=== PATIENT | male | born 1995 | race Caucasian/White ===

== ENCOUNTER 2016-11-22 17:12 | Observation (INO) | payer BC ==
[~2016-11-22] VITALS: Ht 177.8 cm; Wt 81.8 kg
[~2016-11-22 17:12] MED LIST: IBUP-1050 PO
--- NOTE | 2016-11-22 18:14 | EMERGENCY ROOM VISIT NOTE ---
History Report prepared by Flako: Mitch Carias Under the Supervision of: Dr. Gil Balderas M.D. 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 The patient was seen in [place] at the time it happened. The patient says that he needs to be treated with factor 8. He had 3 rounds of factor 8 in [place], and says he needs more here. The patient's mother says that the patient is normally treated at home, but they are out of factor 8. The patient's arm has had worsening swelling and bruising in the past 24 hours. He denies any pain other than left arm pain. He sees and follows up with a pharmacist per diem in [place]. Source of History: patient, parent Onset: 5 days ago Position: elbow (left) Quality: other (dislocation - subsequent swelling/bruising) Timing: worsening Note: Associated symptoms: Left arm pain. Denies any other pain. Review of Systems See HPI for pertinent positives & negatives. A total of 10 systems reviewed and were otherwise negative. Past Medical & Surgical Medical Problems: (1) Ankle sprain (2) Ankle sprain (3) Ankle sprain (4) Ankle sprain (5) Ankle sprain (6) Ankle sprain (7) Arm pain, right (8) Arm pain, right (9) Arm pain, right (10) Arm pain, right (11) Arm pain, right (12) Arm pain, right (13) Bleeding (14) Bleeding (15) Bleeding (16) Bleeding (17) Bleeding (18) Bleeding (19) Bruising (20) Bruising (21) Bruising (22) Bruising (23) Bruising (24) Bruising (25) Hemophilia (26) Thigh contusion (27) Thigh contusion (28) Thigh contusion (29) Thigh contusion (30) Thigh contusion (31) Thigh contusion Family History Cancer Cancer Cancer Cancer Cancer Cancer Diabetes mellitus Diabetes mellitus Diabetes mellitus Diabetes mellitus Diabetes mellitus Diabetes mellitus Hypertension Hypertension Hypertension Hypertension Hypertension Hypertension Social History Smoking Status: Never Smoker Alcohol Use: none Drug Use: none Marital Status: single Housing Status: lives with family Occupation Status: student Current/Historical Medications Scheduled PRN Ibuprofen (Advil), 200-600 MG PO Q4H PRN for Pain or Fever [Factor VIII], 1 DOSE INJ UD PRN for Hemophilia Allergies Coded Allergies: Sulfa Drugs (Unverified Allergy, Mild, 04/12/16) Physical Exam Vital Signs Date Time Temp Pulse Resp B/P (MAP) Pulse Ox O2 Delivery O2 Flow Rate FiO2 11/22/16 19:49 57 11/22/16 17:28 36.8 62 18 126/94 100 Room Air Physical Exam GENERAL: Patient is a healthy-appearing well-nourished 21 year old male. HEAD: Normocephalic atraumatic EYES: Ocular movements intact pupils equal and react to light OROPHARYNX mucous membranes are moist no exudates present no erythema or edema present NECK: Supple no nuchal rigidity CHEST: Good equal expansion LUNGS: Clear and equal to auscultation CARDIAC: Normal S1 and S2 ABDOMEN: Soft nontender no guarding BACK: No CVA tenderness EXTREMITIES: Left arm grossly swollen. No evidence of compartment syndrome. Large bruising down left forearm, no evidence of cellulitis. NEURO: Patient is following commands and answering questions appropriately. Alert and oriented x3 Cranial Nerves 2-12 grossly intact Medical Decision & Procedures Laboratory Results 11/22/16 18:54 Red Blood Count 3.63, Mean Corpuscular Volume 87.1, Mean Corpuscular Hemoglobin 28.7, Mean Corpuscular Hemoglobin Concent 32.9, Mean Platelet Volume 9.5, Neutrophils (%) (Auto) 53.0, Lymphocytes (%) (Auto) 38.8, Monocytes (%) (Auto) 6.2, Eosinophils (%) (Auto) 1.6, Basophils (%) (Auto) 0.3, Neutrophils # (Auto) 4.18, Lymphocytes # (Auto) 3.06, Monocytes # (Auto) 0.49, Eosinophils # (Auto) 0.13, Basophils # (Auto) 0.02 11/22/16 18:54 Test 11/22/16 18:54 White Blood Count 7.89 K/uL (4.8-10.8) Red Blood Count 3.63 M/uL (4.7-6.1) Hemoglobin 10.4 g/dL (14.0-18.0) Hematocrit 31.6 % (42-52) Mean Corpuscular Volume 87.1 fL (80-100) Mean Corpuscular Hemoglobin 28.7 pg (25-34) Mean Corpuscular Hemoglobin Concent 32.9 g/dl (32-36) Platelet Count 256 K/uL (130-400) Mean Platelet Volume 9.5 fL (7.4-10.4) Neutrophils (%) (Auto) 53.0 % Lymphocytes (%) (Auto) 38.8 % Monocytes (%) (Auto) 6.2 % Eosinophils (%) (Auto) 1.6 % Basophils (%) (Auto) 0.3 % Neutrophils # (Auto) 4.18 K/uL (1.4-6.5) Lymphocytes # (Auto) 3.06 K/uL (1.2-3.4) Monocytes # (Auto) 0.49 K/uL (0.11-0.59) Eosinophils # (Auto) 0.13 K/uL (0-0.5) Basophils # (Auto) 0.02 K/uL (0-0.2) RDW Standard Deviation 42.3 fL (36.4-46.3) RDW Coefficient of Variation 13.2 % (11.5-14.5) Immature Granulocyte % (Auto) 0.1 % Immature Granulocyte # (Auto) 0.01 K/uL (0.00-0.02) Anion Gap 8.0 mmol/L (3-11) Est Creatinine Clear Calc Drug Dose 144.1 ml/min Estimated GFR () 144.8 Estimated GFR (Non- 124.9 BUN/Creatinine Ratio 17.2 (10-20) Calcium Level 8.6 mg/dl (8.5-10.1) Total Bilirubin 0.8 mg/dl (0.2-1) Direct Bilirubin 0.2 mg/dl (0-0.2) Aspartate Amino Transf (AST/SGOT) 19 U/L (15-37) Alanine Aminotransferase (ALT/SGPT) 30 U/L (12-78) Alkaline Phosphatase 61 U/L (45-117) Total Protein 6.7 gm/dl (6.4-8.2) Albumin 3.6 gm/dl (3.4-5.0) Lipase 291 U/L (73-393) Labs reviewed by ED physician. Medications Administered Medications (Trade) Dose Ordered Sig/Allie Route Start Time Stop Time Status Last Admin Dose Admin Antihemophilic Factor 3696 inter.unit/Syringe ml @ 5 mls/min NOW ONCE IV 11/22/16 18:45 11/22/16 18:46 DC 11/22/16 19:02 5 MLS/MIN Tramadol HCl (Ultram Tab) 50 mg NOW STAT PO 11/22/16 18:49 11/22/16 18:50 DC 11/22/16 19:02 50 MG ED Course 180: Past medical records reviewed. The patient was evaluated in room C4. A complete history and physical examination was performed. 1844: Ordered Factor 8/Humate-P/Recombinate 1 ea N/A. 1845: I reevaluated the patient and he is resting comfortably. The patient verbally expressed understanding and agreement of the treatment plan. The patient will be evaluated for further treatment. 1848: Ordered Ultram Tab 50 mg PO. 1850: I discussed the patient with Dr. Edda Aragon culinary manager - he will evaluate the patient for further treatment. Medical Decision Differential diagnosis: Etiologies such as cellulitis, abscess, MRSA infection, DVT, necrotizing fasciitis, dermatitis, drug eruption, as well as others were entertained.. Medication Reconciliation: I attest that I have personally reviewed the patient' s current medication list Blood Pressure Screening: Patient was found to have normal blood pressure on screening and does not require follow up. This is a 21-year-old male who presents emergency department complaining of severe swelling to the left arm and elbow. He made contact with this patient's pharmacist per diem at [place] who asked that the patient be admitted to the hospital due to the continued swelling that the patient's abdomen of the arm. They also asked that the patient's factor VIII be bumped up to 3696 units. I did discuss this with the family who agreed with plan. The patient was also discussed with the hospitalist. Consults Time Called: 1844 Consulting Physician: Dr. Edda Aragon culinary manager Returned Call: 1850 I discussed the patient with Dr. Edda Aragon culinary manager - he will evaluate the patient for further treatment. Impression Primary Impression: Hemophilia A Additional Impression: Contusion Scribe Attestation The scribe's documentation has been prepared under my direction and personally reviewed by me in its entirety. I confirm that the note above accurately reflects all work, treatment, procedures, and medical decision making performed by me. Departure Information Dispostion Being Evaluated By Hospitalist Jun Rader M.D. (PCP) Patient Instructions My [facility] Problem Qualifiers Additional Impression: Contusion Encounter type: initial encounter Contusion area: elbow Laterality: left Qualified Codes: S50.02XA - Contusion of left elbow, initial encounter
[2016-11-22] MEDS ORDERED: FACT1KIT IV (18:29)
[2016-11-22] MEDS ORDERED: FACTOR VIII INJ (18:35)
[2016-11-22] MEDS ORDERED: FACTOR 8/HUMATE-P/RECOMBINATE ONE ×2 (18:45→20:00)
[2016-11-22] MEDS ORDERED: RECOMBINATE INTER IV ONE (18:45)
[2016-11-22] MEDS ORDERED: TRAMADOL HCL 50 MG TAB PO STA (18:49)
[2016-11-22 19:04] LABS: BASO % 0.3 %; BASO ABS # 0.02 K/uL (0-0.2); COMPLETE YES; EOS % 1.6 %; HEMATOCRIT 31.6 % (42-52); IG% 0.1 %; LYMPH % 38.8 %; LYMPH ABS # 3.06 K/uL (1.2-3.4); MEAN CELL VOLUME 87.1 fL (80-100); MEAN CORPUSCULAR HEMOGLOBIN 28.7 pg (25-34); MEAN CORPUSCULAR HGB CONC 32.9 g/dl (32-36); MEAN PLATELET VOLUME 9.5 fL (7.4-10.4); MONO % 6.2 %; PLATELET COUNT 256 K/uL (130-400); RED BLOOD COUNT 3.63 M/uL (4.7-6.1); WHITE BLOOD COUNT 7.89 K/uL (4.8-10.8)
[2016-11-22 19:28] LABS: BUN/CREATININE RATIO 17.2 (10-20); CALCIUM 8.6 mg/dl (8.5-10.1); CREATININE 0.83 mg/dl (0.60-1.40); POTASSIUM 3.6 mmol/L (3.5-5.1)
[2016-11-22 21:00] VITALS: BP 135/89; PULSE 52; TEMP 36.8; O2SAT 97; Ht 177.8 cm; Wt 81.8 kg
[2016-11-22] MEDS ORDERED: IV FLUIDS COMPLETED PRN (21:00)
--- NOTE | 2016-11-22 21:08 | History and Physical ---
History & Physical Date & Time of Service: Nov 22, 2016 at 20:47 Chief Complaint: Swollen Left Arm Primary Care Physician: Jun Anderson M.D. 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 His elbow became swollen and bruised due to his hemophilia and he was seen in the hospital on November 18 - was given IV Factor VIII - was seen again the evening on November 18, and was given more Factor VIII and was discharged on November 19 - after his flight back to [place] he presented here; he is to take Factor VIII at home as needed for situations that arise like this, but ran out. Upon presentation to the ER, Hgb noted to be 10.4 (was 14.9 on November 18) - [facility] was called and they recommended Recombinate q12 for 2-3 days. Pain is controlled with medications; otherwise, no other symptoms. Past Medical/Surgical History Medical Problems: (1) Ankle sprain Status: Resolved (2) Ankle sprain Status: Resolved (3) Ankle sprain Status: Resolved (4) Ankle sprain Status: Resolved (5) Ankle sprain Status: Resolved (6) Ankle sprain Status: Resolved (7) Arm pain, right Status: Resolved (8) Arm pain, right Status: Resolved (9) Arm pain, right Status: Resolved (10) Arm pain, right Status: Resolved (11) Arm pain, right Status: Resolved (12) Arm pain, right Status: Resolved (13) Bleeding Status: Resolved (14) Bleeding Status: Resolved (15) Bleeding Status: Resolved (16) Bleeding Status: Resolved (17) Bleeding Status: Resolved (18) Bleeding Status: Resolved (19) Bruising Status: Resolved (20) Bruising Status: Resolved (21) Bruising Status: Resolved (22) Bruising Status: Resolved (23) Bruising Status: Resolved (24) Bruising Status: Resolved (25) Hemophilia Status: Chronic (26) Thigh contusion Status: Resolved (27) Thigh contusion Status: Resolved (28) Thigh contusion Status: Resolved (29) Thigh contusion Status: Resolved (30) Thigh contusion Status: Resolved (31) Thigh contusion Status: Resolved Family History Cancer Cancer Cancer Cancer Cancer Cancer Diabetes mellitus Diabetes mellitus Diabetes mellitus Diabetes mellitus Diabetes mellitus Diabetes mellitus Hypertension Hypertension Hypertension Hypertension Hypertension Hypertension Social History Smoking Status: Never Smoker Drug Use: none Marital Status: single Housing status: lives with family Occupational Status: student Multi-Drug Resistant Organisms History of MDRO: No Allergies Coded Allergies: Sulfa Drugs (Unverified Allergy, Mild, 04/12/16) Home Medications Scheduled PRN Ibuprofen (Advil), 200-600 MG PO Q4H PRN for Pain or Fever [Factor VIII], 1 DOSE INJ UD PRN for Hemophilia Review of Systems Constitutional: No fever, No chills, No weakness, No fatigue ENT: No unusual epistaxis Respiratory: No cough, No sputum, No shortness of breath, No hemoptysis Abdomen: No pain, No nausea, No vomiting, No diarrhea, No constipation, No GI bleeding Musculoskeletal: + joint pain (L elbow) Genitourinary - Male: No hematuria Neurologic: No weakness Psychiatric: No depression symptoms Endocrine: No fatigue Hematologic / Lymphatic: + abnormal bleeding/bruising Allergic / Immunologic: No environmental allergies, No seasonal allergies Physical Exam Vital Signs Date Time Temp Pulse Resp B/P (MAP) Pulse Ox O2 Delivery O2 Flow Rate FiO2 11/22/16 20:29 62 18 125/85 98 Room Air 11/22/16 19:49 57 11/22/16 17:28 36.8 62 18 126/94 100 Room Air General Appearance: no apparent distress Head: normocephalic, atraumatic Eyes: normal inspection ENT: hearing grossly normal Neck: supple Respiratory/Chest: no respiratory distress, no accessory muscle use Cardiovascular: regular rate, rhythm, no edema, no murmur Abdomen/GI: non tender, soft Extremities/Musculoskelatal: + pertinent finding (L elbow swelling, inner arm is bruised extensively; painful ROM, difficult to straighten arm) Neurologic/Psych: no motor/sensory deficits, alert, normal mood/affect Skin: normal color Diagnostics Laboratory Results Results Past 24 Hours Test 11/22/16 18:54 Range/Units White Blood Count 7.89 4.8-10.8 K/uL Red Blood Count 3.63 4.7-6.1 M/uL Hemoglobin 10.4 14.0-18.0 g/dL Hematocrit 31.6 42-52 % Mean Corpuscular Volume 87.1 80-100 fL Mean Corpuscular Hemoglobin 28.7 25-34 pg Mean Corpuscular Hemoglobin Concent 32.9 32-36 g/dl Platelet Count 256 130-400 K/uL Mean Platelet Volume 9.5 7.4-10.4 fL Neutrophils (%) (Auto) 53.0 % Lymphocytes (%) (Auto) 38.8 % Monocytes (%) (Auto) 6.2 % Eosinophils (%) (Auto) 1.6 % Basophils (%) (Auto) 0.3 % Neutrophils # (Auto) 4.18 1.4-6.5 K/uL Lymphocytes # (Auto) 3.06 1.2-3.4 K/uL Monocytes # (Auto) 0.49 0.11-0.59 K/uL Eosinophils # (Auto) 0.13 0-0.5 K/uL Basophils # (Auto) 0.02 0-0.2 K/uL RDW Standard Deviation 42.3 36.4-46.3 fL RDW Coefficient of Variation 13.2 11.5-14.5 % Immature Granulocyte % (Auto) 0.1 % Immature Granulocyte # (Auto) 0.01 0.00-0.02 K/uL Sodium Level 141 136-145 mmol/L Potassium Level 3.6 3.5-5.1 mmol/L Chloride Level 107 98-107 mmol/L Carbon Dioxide Level 26 21-32 mmol/L Anion Gap 8.0 3-11 mmol/L Blood Urea Nitrogen 14 7-18 mg/dl Creatinine 0.83 0.60-1.40 mg/dl Est Creatinine Clear Calc Drug Dose 144.1 ml/min Estimated GFR () 144.8 Estimated GFR (Non- 124.9 BUN/Creatinine Ratio 17.2 10-20 Random Glucose 84 70-99 mg/dl Calcium Level 8.6 8.5-10.1 mg/dl Total Bilirubin 0.8 0.2-1 mg/dl Direct Bilirubin 0.2 0-0.2 mg/dl Aspartate Amino Transf (AST/SGOT) 19 15-37 U/L Alanine Aminotransferase (ALT/SGPT) 30 12-78 U/L Alkaline Phosphatase 61 45-117 U/L Total Protein 6.7 6.4-8.2 gm/dl Albumin 3.6 3.4-5.0 gm/dl Lipase 291 73-393 U/L Impression Assessment and Plan This is a 21 year old male with a PMH of hemophilia A here with swelling/ bruising of the L elbow Hemophilia A; L elbow bruising with injury to L elbow; swelling/bruising; imagining does not suggest any fractures/breaks plan is to give Recombinate as per [facility] dosing as per Hematology/pharmacy, q12; recommendation of around 3 days of treatment will need to discuss length of IV treatment; family states they will receive Factor VIII at home tomorrow FULL CODE VTE Prophylaxis VTE Risk Assessment Done? Y/N: Yes Risk Level: Low
[2016-11-22] MEDS: TRAMADOL HCL 50 MG TAB PO PRN (22:07)
[2016-11-23] VITALS (7 sets, daily range): BP systolic 119–138; BP diastolic 68–88; PULSE 57–63; TEMP 36.3–37.1; O2SAT 97–99
[2016-11-23 06:49] LABS: HEMATOCRIT 32.4 % (42-52); MEAN CELL VOLUME 88.5 fL (80-100); MEAN CORPUSCULAR HEMOGLOBIN 30.1 pg (25-34); MEAN PLATELET VOLUME 10.1 fL (7.4-10.4); PLATELET COUNT 246 K/uL (130-400); RED BLOOD COUNT 3.66 M/uL (4.7-6.1); WHITE BLOOD COUNT 7.51 K/uL (4.8-10.8)
[2016-11-23] MEDS ORDERED: RECOMBINATE INTER IV SCH (08:00)
[2016-11-23] MEDS: TRAMADOL HCL 50 MG TAB PO PRN ×4 (08:25→22:50)
--- NOTE | 2016-11-23 17:35 | Progress Note ---
Internal Med Progress Note Date of Service: Nov 23, 2016. Provider Documentation: SUBJECTIVE: Patient is sitting in the chair and is in no apparent distress. Pain and swelling in the left elbow and in the surrounding area is tolerable and does not seem to be getting any worst. Some swelling in the left hand but can move fingers of left hand comfortably. OBJECTIVE: Vital Signs-as noted below Examination: General Appearance: Alert/Awake in no apparent distress Head: normocephalic, atraumatic Eyes: normal inspection ENT: hearing grossly normal. Ears, Nose & Throat are normal. Neck: supple, midline trachea. Respiratory/Chest: no respiratory distress, no accessory muscle use Cardiovascular: regular rate, rhythm, no edema, no murmur Abdomen/GI: non tender, soft Extremities/Musculoskeletal: Left elbow swelling, inner arm is bruised extensively; painful ROM, difficult to straighten arm. Area is still softer but painful on palpation, No signs of compartment syndrome. Neurologic/Psych: no motor/sensory deficits, alert, normal mood/affect Skin: normal color Lab data as noted below. ASSESSMENT & PLAN: 21 year old male with a PMH of hemophilia A here with swelling/bruising of the L elbow Hemophilia A; Left Elbow Bruising: With injury to Left elbow; swelling/bruising ; imagining does not suggest any fractures/breaks Plan is to give Recombinate as per [facility] where he follows regularly. Dosing as per Hematology/pharmacy, q12; recommendation of around 3 days of treatment Family states they will receive Factor VIII at home tomorrow Discussed with patient and his mother about unavailability of Factor VIII in this hospital and they are OK to receive the plasma based factior VIII. Discussed with Nurse Coordinator Jacquelin at [phone] Discussed with our pharmacist as well and updated. FULL CODE Vital Signs: Date Time Temp Pulse Resp B/P (MAP) Pulse Ox O2 Delivery O2 Flow Rate FiO2 11/23/16 15:15 Room Air 11/23/16 15:06 37.1 58 18 119/68 (85) 97 Room Air 11/23/16 08:15 Room Air 11/23/16 08:10 98 Room Air 11/23/16 08:04 36.3 58 16 122/88 (99) 98 Room Air 11/23/16 00:00 97 Room Air 11/22/16 23:30 Room Air 11/22/16 21:00 36.8 52 16 135/89 97 Room Air 11/22/16 20:29 62 18 125/85 98 Room Air 11/22/16 19:49 57 Lab Results: Results Past 24 Hours Test 11/22/16 18:54 11/23/16 06:26 Range/Units White Blood Count 7.89 7.51 4.8-10.8 K/uL Red Blood Count 3.63 3.66 4.7-6.1 M/uL Hemoglobin 10.4 11.0 14.0-18.0 g/dL Hematocrit 31.6 32.4 42-52 % Mean Corpuscular Volume 87.1 88.5 80-100 fL Mean Corpuscular Hemoglobin 28.7 30.1 25-34 pg Mean Corpuscular Hemoglobin Concent 32.9 34.0 32-36 g/dl Platelet Count 256 246 130-400 K/uL Mean Platelet Volume 9.5 10.1 7.4-10.4 fL Neutrophils (%) (Auto) 53.0 % Lymphocytes (%) (Auto) 38.8 % Monocytes (%) (Auto) 6.2 % Eosinophils (%) (Auto) 1.6 % Basophils (%) (Auto) 0.3 % Neutrophils # (Auto) 4.18 1.4-6.5 K/uL Lymphocytes # (Auto) 3.06 1.2-3.4 K/uL Monocytes # (Auto) 0.49 0.11-0.59 K/uL Eosinophils # (Auto) 0.13 0-0.5 K/uL Basophils # (Auto) 0.02 0-0.2 K/uL RDW Standard Deviation 42.3 43.9 36.4-46.3 fL RDW Coefficient of Variation 13.2 13.4 11.5-14.5 % Immature Granulocyte % (Auto) 0.1 % Immature Granulocyte # (Auto) 0.01 0.00-0.02 K/uL Sodium Level 141 136-145 mmol/L Potassium Level 3.6 3.5-5.1 mmol/L Chloride Level 107 98-107 mmol/L Carbon Dioxide Level 26 21-32 mmol/L Anion Gap 8.0 3-11 mmol/L Blood Urea Nitrogen 14 7-18 mg/dl Creatinine 0.83 0.60-1.40 mg/dl Est Creatinine Clear Calc Drug Dose 144.1 ml/min Estimated GFR () 144.8 Estimated GFR (Non- 124.9 BUN/Creatinine Ratio 17.2 10-20 Random Glucose 84 70-99 mg/dl Calcium Level 8.6 8.5-10.1 mg/dl Total Bilirubin 0.8 0.2-1 mg/dl Direct Bilirubin 0.2 0-0.2 mg/dl Aspartate Amino Transf (AST/SGOT) 19 15-37 U/L Alanine Aminotransferase (ALT/SGPT) 30 12-78 U/L Alkaline Phosphatase 61 45-117 U/L Total Protein 6.7 6.4-8.2 gm/dl Albumin 3.6 3.4-5.0 gm/dl Lipase 291 73-393 U/L
[2016-11-23] MEDS ORDERED: [UNRECOGNIZED DRUG - MIXTURE] IV SCH (20:00)
--- NOTE | 2016-11-23 21:03 | DIAGNOSTIC IMAGING REPORT ---
LEFT ELBOW MIN 3 VIEWS ROUTINE CLINICAL HISTORY: Left elbow pain status post trauma COMPARISON: None. DISCUSSION: The examination is limited from a technical standpoint. There is a small joint effusion. No acute fractures are visualized. There is associated soft tissue edema. IMPRESSION: 1. Technically limited study from a positioning standpoint 2. Small joint effusion. In the setting of trauma this may indicate an occult fracture 3. No fractures are visualized on the provided images 4. Soft tissue swelling Electronically signed by: Wenceslao Carty M.D. 11/23/2016 9:02 PM Dictated Date/Time: 11/23/2016 9:00 PM
[2016-11-24 07:06] LABS: BASO % 0.3 %; BASO ABS # 0.02 K/uL (0-0.2); COMPLETE YES; EOS % 2.1 %; HEMATOCRIT 34.1 % (42-52); IG% 0.3 %; LYMPH % 34.3 %; LYMPH ABS # 2.73 K/uL (1.2-3.4); MEAN CELL VOLUME 88.6 fL (80-100); MEAN CORPUSCULAR HEMOGLOBIN 29.4 pg (25-34); MEAN CORPUSCULAR HGB CONC 33.1 g/dl (32-36); MEAN PLATELET VOLUME 9.8 fL (7.4-10.4); MONO % 8.6 %; NEUT % 54.4 %; PLATELET COUNT 274 K/uL (130-400); RED BLOOD COUNT 3.85 M/uL (4.7-6.1); WHITE BLOOD COUNT 7.95 K/uL (4.8-10.8)
[2016-11-24] MEDS: TRAMADOL HCL 50 MG TAB PO PRN ×2 (07:59→13:27)
[2016-11-24 08:02] VITALS: BP 100/70; PULSE 56; TEMP 36.7; O2SAT 95
[2016-11-24 08:16] VITALS: O2SAT 95
[2016-11-24] MEDS ORDERED: FACTOR 8/HUMATE-P/RECOMBINATE ONE (15:15)
[2016-11-24 15:17] VITALS: BP 122/75; PULSE 83; TEMP 37; O2SAT 96
--- NOTE | 2016-11-24 15:47 | Progress Note ---
Internal Med Progress Note Date of Service: Nov 24, 2016. Provider Documentation: SUBJECTIVE: Patient is sitting in the chair and is in no apparent distress. Pain and swelling in the left elbow and in the surrounding area is tolerable and does not seem to be getting any worst.C/o More pain today. Some swelling in the left hand which is better today & can move fingers of left hand comfortably. OBJECTIVE: Vital Signs-as noted below Examination: General Appearance: Alert/Awake in no apparent distress Head: normocephalic, atraumatic Eyes: normal inspection ENT: hearing grossly normal. Ears, Nose & Throat are normal. Neck: supple, midline trachea. Respiratory/Chest: no respiratory distress, no accessory muscle use Cardiovascular: regular rate, rhythm, no edema, no murmur Abdomen/GI: non tender, soft Extremities/Musculoskeletal: Left elbow swelling, inner arm is bruised extensively; painful ROM, difficult to straighten arm. Area is still softer but painful on palpation, No signs of compartment syndrome. Neurologic/Psych: no motor/sensory deficits, alert, normal mood/affect Skin: normal color Lab data as noted below. ASSESSMENT & PLAN: X-Ray Left Elbow (11/24/2016) IMPRESSION: 1. Technically limited study from a positioning standpoint 2. Small joint effusion. In the setting of trauma this may indicate an occult fracture 3. No fractures are visualized on the provided images 4. Soft tissue swelling 21 year old male with a PMH of hemophilia A here with swelling/bruising of the L elbow Hemophilia A; Left Elbow Bruising: With injury to Left elbow; swelling/bruising ; imagining does not suggest any fractures/breaks Plan is to give Recombinate as per [facility] where he follows regularly. Dosing as per Hematology/pharmacy, q12; recommendation of around 3 days of treatment Family states they will receive Factor VIII at home tomorrow Discussed with patient and his mother about unavailability of Factor VIII in this hospital and they are OK to receive the plasma based factor VIII. Will give one dose of Recombinate factor VIII today Discussed with Nurse Coordinator Jacquelin at [phone] Discussed with our pharmacist as well and updated. FULL CODE Discharge home later today. Detailed instructions given to the patient in presence of his mother. Advised to follow up with his PCP in the next 3-5 days Vital Signs: Date Time Temp Pulse Resp B/P (MAP) Pulse Ox O2 Delivery O2 Flow Rate FiO2 11/24/16 16:00 96 Room Air 11/24/16 15:17 37.0 83 16 122/75 (91) 96 Room Air 11/24/16 08:16 95 Room Air 11/24/16 08:02 36.7 56 12 100/70 (80) 95 Room Air 11/24/16 07:55 Room Air 11/23/16 23:30 Room Air 11/23/16 22:46 36.8 57 17 138/77 (97) 99 Room Air 11/23/16 21:22 63 97 11/23/16 21:20 63 99 11/23/16 19:40 Room Air Lab Results: Results Past 24 Hours Test 11/24/16 06:25 Range/Units White Blood Count 7.95 4.8-10.8 K/uL Red Blood Count 3.85 4.7-6.1 M/uL Hemoglobin 11.3 14.0-18.0 g/dL Hematocrit 34.1 42-52 % Mean Corpuscular Volume 88.6 80-100 fL Mean Corpuscular Hemoglobin 29.4 25-34 pg Mean Corpuscular Hemoglobin Concent 33.1 32-36 g/dl Platelet Count 274 130-400 K/uL Mean Platelet Volume 9.8 7.4-10.4 fL Neutrophils (%) (Auto) 54.4 % Lymphocytes (%) (Auto) 34.3 % Monocytes (%) (Auto) 8.6 % Eosinophils (%) (Auto) 2.1 % Basophils (%) (Auto) 0.3 % Neutrophils # (Auto) 4.33 1.4-6.5 K/uL Lymphocytes # (Auto) 2.73 1.2-3.4 K/uL Monocytes # (Auto) 0.68 0.11-0.59 K/uL Eosinophils # (Auto) 0.17 0-0.5 K/uL Basophils # (Auto) 0.02 0-0.2 K/uL RDW Standard Deviation 43.2 36.4-46.3 fL RDW Coefficient of Variation 13.6 11.5-14.5 % Immature Granulocyte % (Auto) 0.3 % Immature Granulocyte # (Auto) 0.02 0.00-0.02 K/uL
[2016-11-24] MEDS: RECOMBINATE INTER IV SCH ×2 (15:58→16:00)
[2016-11-24 16:00] VITALS: O2SAT 96
[2016-11-24] MEDS ORDERED: OXYC2.5T4 PO (16:52)
--- NOTE | 2016-11-24 16:57 | Discharge Instructions ---
Discharge Instructions Date of Service Nov 24, 2016. Admission Reason for Admission: Hemophilia A, Left Arm Swelling Discharge Discharge Diagnosis / Problem: Traumatic hematoma left Elbow Discharge Goals Goal(s): Decrease discomfort, Improve function, Increase independence, Improve disease control, Learn about illness, Prevent Disease Progression Activity Recommendations Activity Limitations: resume your previous activity (As tolerated) Exercise/Sports Limitations: gradually increase as tolerated May Resume Sexual Activity: when tolerated Shower/Bathe: no limitations Driving or Machine Use: Once cleared by PCP . Instructions / Follow-Up Instructions / Follow-Up 1. Apply cold compresses locally to the affected area 2. Use Tylenol 500 mg 1-2 tablets every 6-8 hourly as needed for Moderate pain 3. Use Percocet for sever pain only 4. Avoid any active/brisk movements of the left elbow 5. Keep sling on 6. Follow up with PCP in the next 3-5 days 7. Stay in touch with your Hemophilia Center at [facility] Diet Patient's current hospital diet: Regular Diet Discharge Diet Recommended Diet: Regular Diet Pending Studies Studies pending at discharge: no Medical Emergencies . Who to Call and When: Medical Emergencies: If at any time you feel your situation is an emergency, please call 911 immediately. . Non-Emergent Contact Non-Emergency issues call your: Primary Care Provider (Or Hemophilia center) . . "Provider Documentation" section prepared by Wrener Persaud. . VTE Core Measure Inpt VTE Proph given/why not?: Treatment not indicated
--- NOTE | 2016-11-24 16:59 | Discharge Summary ---
Discharge Summary Date of Service Nov 24, 2016. Discharge Summary Admission Date: Nov 22, 2016 at 20:30 Discharge Date: Nov 24, 2016 Discharge Disposition: Home Principal Diagnosis: Traumatic hematoma Left Elbow joint Secondary Diagnoses/Problems: Hemophilia Procedures: X-Ray Left Elbow IMPRESSION: 1. Technically limited study from a positioning standpoint 2. Small joint effusion. In the setting of trauma this may indicate an occult fracture 3. No fractures are visualized on the provided images 4. 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 His elbow became swollen and bruised due to his hemophilia and he was seen in the hospital on Sunday, November 18 - was given IV Factor VIII - was seen again the evening on November 18, and was given more Factor VIII and was discharged on November 19 - after his flight back to [place] he presented here; he is to take Factor VIII at home as needed for situations that arise like this, but ran out. Upon presentation to the ER, Hgb noted to be 10.4 (was 14.9 on November 18) - [facility] was called and they recommended Recombinate q12 for 2-3 days. Pain is controlled with medications; otherwise, no other symptoms. Physical Exam (per Admitting): General Appearance: no apparent distress Head: normocephalic, atraumatic Eyes: normal inspection ENT: hearing grossly normal Neck: supple Respiratory/Chest: no respiratory distress, no accessory muscle use Cardiovascular: regular rate, rhythm, no edema, no murmur Abdomen/GI: non tender, soft Extremities/Musculoskelatal: + pertinent finding (L elbow swelling, inner arm is bruised extensively; painful ROM, difficult to straighten arm) Neurologic/Psych: no motor/sensory deficits, alert, normal mood/affect Skin: normal color Hospital Course X-Ray Left Elbow (11/24/2016) IMPRESSION: 1. Technically limited study from a positioning standpoint 2. Small joint effusion. In the setting of trauma this may indicate an occult fracture 3. No fractures are visualized on the provided images 4. 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 Dosing as per Hematology/pharmacy, q12; recommendation of around 3 days of treatment Family states they will receive Factor VIII at home tomorrow Discussed with patient and his mother about unavailability of Factor VIII in this hospital and they are OK to receive the plasma based factor VIII. Will give one dose of Recombinate factor VIII today Discussed with Nurse Coordinator Jacquelin at [phone] Discussed with our pharmacist as well and updated. FULL CODE Discharge home later today. Detailed instructions given to the patient in presence of his mother. Advised to follow up with his PCP in the next 3-5 days Total time spent on discharge = This includes examination of the patient, discharge planning, medication reconciliation, and communication with other providers. Discharge Instructions Activity Recommendations Activity Limitations: resume your previous activity (As tolerated) Exercise/Sports Limitations: gradually increase as tolerated May Resume Sexual Activity: when tolerated Shower/Bathe: no limitations Driving or Machine Use: Once cleared by PCP . Instructions / Follow-Up Instructions / Follow-Up 1. Apply cold compresses locally to the affected area 2. Use Tylenol 500 mg 1-2 tablets every 6-8 hourly as needed for Moderate pain 3. Use Percocet for sever pain only 4. Avoid any active/brisk movements of the left elbow 5. Keep sling on 6. Follow up with PCP in the next 3-5 days 7. Stay in touch with your Hemophilia Center at [facility] Diet Patient's current hospital diet: Regular Diet Discharge Diet Recommended Diet: Regular Diet Additional Copies To Jun Anderson M.D.
[2016-11-24 17:22] VITALS: BP 122/75; PULSE 83; TEMP 37; O2SAT 96
== END 2016-11-24 19:00 | disposition home or self-care (01) ==
LOC: C.EDB 17:13 → C.MSN 20:30 → EDBEDREQ 20:35 → ENRESERV 20:49
PROVIDERS: ADMIT Family Medicine; ATTEND Emergency Medicine
DX: S50.02XA Contusion of left elbow, initial encounter (principal); X58.XXXA Exposure to other specified factors, initial encounter; Y93.61 Activity, american tackle football; D66 Hereditary factor VIII deficiency; Z83.3 Family history of diabetes mellitus; Z82.49 Family history of ischemic heart disease and other diseases of the circulatory system